=== PATIENT | male | born 1950 | race Hispanic/Latino ===

== ENCOUNTER 2021-04-20 07:07 | Day surgery (SDC) | payer MEDICARE ==
[2021-04-18 14:08] LABS: BASOPHILS % (AUTO) 1.3 % (0.0-5.0); EOSINOPHILS % (AUTO) 4.5 % (0.0-8.0); HEMATOCRIT 43.2 % (42-54); LYMPHOCYTES % (AUTO) 40.1 % (21.0-51.0); MEAN CORPUSCULAR HEMOGLOBIN 31.8 pg (27.0-33.0); MEAN CORPUSCULAR HGB CONC 32.9 g/dL (32.0-36.0); MEAN CORPUSCULAR VOLUME 96.9 fL (79-99); MONOCYTES % (AUTO) 13.8 % (3.0-13.0); NEUTROPHILS % (AUTO) 40.1 % (40.0-77.0); PLATELET COUNT (AUTO) 258 K/uL (130-400); RED BLOOD CELL COUNT(AUTO) 4.46 MIL/uL (4.50-6.20); RED CELL DISTRIBUTION WIDTH 12.2 % (11.0-15.5); WHITE BLOOD COUNT (AUTO) 5.4 K/uL (4.8-10.8)
[2021-04-18 14:18] LABS: CREATININE 0.9 mg/dL (0.5-1.5); POTASSIUM 4.8 mmol/L (3.5-5.1)
[2021-04-18 14:19] LABS: APPEARANCE,URINE Clear (CLEAR); BILIRUBIN,URINE Negative (NEGATIVE); COLOR,URINE Yellow (YELLOW); GLUCOSE, URINE (UA) Negative (NEGATIVE); KETONES,URINE Trace mg/dL (NEGATIVE); LEUKOCYTE ESTERASE ,URINE Negative (NEGATIVE); NITRATE,URINE Negative (NEGATIVE); OCCULT BLOOD,URINE Negative (NEGATIVE); PROTEIN,URINE Negative (NEGATIVE)
[2021-04-18 14:21] LABS: INR 0.99 (0.85-1.15); PROTHROMBIN TIME 10.8 SEC (9.6-11.6)
[2021-04-18 14:23] LABS: PARTIAL THROMBOPLASTIN TIME 26.3 SEC (26.3-35.5)
[2021-04-20] VITALS (11 sets, daily range): BP systolic 113–140; BP diastolic 64–85
[~2021-04-20] VITALS: Ht 175.3 cm; Wt 85.9 kg
[~2021-04-20 07:07] MED LIST: 0.9% NACL 500ML IV.SOLN 500 ML IV SCH; ASPI-1443 PO; CELE200 PO; LOSA50TA64 PO; NITR0.4T50 SL; PANT40TA54 PO; PRAV40TA3 PO; RANO10005 PO; SILD100T PO; VITAMIN D3 PO
[2021-04-20] MEDS ORDERED: 0.9%NACL 1000ML 1,000 ML IV ONE (07:11)
[2021-04-20] MEDS ORDERED: NITROGLYCERIN 2 MG VIAL IV ONE (08:39)
[2021-04-20] MEDS ORDERED: BIVALIRUDIN 250 MG/VIAL IV ONE (08:39)
[2021-04-20] MEDS ORDERED: IOHEXOL-350 50ML VIAL IV ONE (08:39)
[2021-04-20] MEDS ORDERED: IOHEXOL 350 MG/ML 100ML INFUS..BTL IV ONE (08:40)
[2021-04-20] MEDS ORDERED: LIDOCAINE HCL 400MG/20ML VIAL ONE (08:40)
[2021-04-20] MEDS ORDERED: MIDAZOLAM HCL 1 MG/ML 2ML VIAL ONE (08:40)
[2021-04-20] MEDS ORDERED: FENTANYL CITRATE PF 50 MCG/1 ML 2ML VIAL ONE (09:51)
[2021-04-20] MEDS ORDERED: 0.9%NACL 1000ML 1,000 ML IV SCH (10:30)
== END 2021-04-20 15:40 | disposition home or self-care (01) ==
LOC: DAH 07:07
PROVIDERS: ATTEND Internal Medicine Cardiovascular Disease
DX: I25.118 Atherosclerotic heart disease of native coronary artery with other forms of angina pectoris (principal); I44.7 Left bundle-branch block, unspecified; I42.8 Other cardiomyopathies; I10 Essential (primary) hypertension; E78.5 Hyperlipidemia, unspecified; J44.9 Chronic obstructive pulmonary disease, unspecified; M19.90 Unspecified osteoarthritis, unspecified site; Z72.89 Other problems related to lifestyle; Z86.16 Personal history of COVID-19; Z79.01 Long term (current) use of anticoagulants; Z79.899 Other long term (current) drug therapy; Z87.891 Personal history of nicotine dependence; Z79.82 Long term (current) use of aspirin; Z82.49 Family history of ischemic heart disease and other diseases of the circulatory system
CPT/HCPCS: 36415; 71045; 80048; 81003; 85025; 85610; 85730; 93005; 93458; A4215; A4216; A4221; A4222; A4223 ×3; A4606; A4663; C1760 ×2; C1894 ×2; J1644; J2250; J3010; J3490 ×2; J7030 ×2; Q9965; Q9967 ×2; 96360; 96361; 99156; 99157; J0583

== ENCOUNTER 2021-07-25 07:58 | Day surgery (SDC) | payer MEDICARE ==
[~2021-07-25] VITALS: Ht 175.3 cm; Wt 88.0 kg
[~2021-07-25 07:58] MED LIST changes: -0.9% NACL 500ML IV.SOLN 500 ML IV SCH; +0.9%NACL 1000ML 1,000 ML IV ONE; +ACET-2521 PO; -CELE200 PO; +DILT180C47 PO; -SILD100T PO; +SILD20TA14 PO
[2021-07-25 09:15] VITALS: BP 160/84
[2021-07-25] MEDS ORDERED: SILD20TA14 PO (09:35)
[2021-07-25] MEDS ORDERED: LOSA50TA64 PO (09:35)
[2021-07-25] MEDS ORDERED: ACET-2113 PO (09:37)
[2021-07-25] MEDS ORDERED: DILT180C47 PO (09:37)
[2021-07-25] MEDS ORDERED: PROPOFOL 10 MG/ML 20ML VIAL IV ONE (10:22)
[2021-07-25 10:40] VITALS: BP 137/73
[2021-07-25 10:45] VITALS: BP 136/58
[2021-07-25 11:15] VITALS: BP 160/84
== END 2021-07-25 11:26 | disposition home or self-care (01) ==
LOC: ENDO 07:58 → DAH 07:58 → ENDO 11:26
PROVIDERS: ATTEND Internal Medicine Gastroenterology
DX: K21.9 Gastro-esophageal reflux disease without esophagitis (principal); Z20.822 Contact with and (suspected) exposure to COVID-19; K29.70 Gastritis, unspecified, without bleeding; K31.89 Other diseases of stomach and duodenum; J44.9 Chronic obstructive pulmonary disease, unspecified; E78.5 Hyperlipidemia, unspecified; M19.90 Unspecified osteoarthritis, unspecified site; K76.0 Fatty (change of) liver, not elsewhere classified; I25.10 Atherosclerotic heart disease of native coronary artery without angina pectoris; Z79.82 Long term (current) use of aspirin; Z79.899 Other long term (current) drug therapy; Z98.890 Other specified postprocedural states; Z86.73 Personal history of transient ischemic attack (TIA), and cerebral infarction without residual deficits; Z80.0 Family history of malignant neoplasm of digestive organs; Z86.19 Personal history of other infectious and parasitic diseases; Z86.010 Personal history of colon polyps
CPT/HCPCS: 43239; 87635; 88305; 88342; A4215 ×2; A4221; A4222; A4223; A4606; A4620; A4657; A4663; C9803; J2704; J7030

== ENCOUNTER → 2023-01-18 | Outpatient (CLI) | payer MEDICARE ==
[~2023-01-18] MED LIST changes: -0.9%NACL 1000ML 1,000 ML IV ONE; +ACET-2113 PO; -ACET-2521 PO
[2023-01-18 13:04] LABS: ALBUMIN 4.1 g/dL (3.5-5.0); CREATININE 0.9 mg/dL (0.5-1.5); POTASSIUM 3.6 mmol/L (3.5-5.1); TOTAL PROTEIN, SERUM 7.8 g/dL (6.0-8.3)
== END | disposition home or self-care (01) ==
LOC: LAB 08:56
PROVIDERS: ATTEND Internal Medicine Cardiovascular Disease
DX: I25.119 Atherosclerotic heart disease of native coronary artery with unspecified angina pectoris (principal); E78.5 Hyperlipidemia, unspecified; I10 Essential (primary) hypertension
CPT/HCPCS: 36415; 80053; 80061

== ENCOUNTER → 2024-01-14 | Outpatient (CLI) | payer OTHER, MEDICARE | END | disposition home or self-care (01) | LOC: RAH 13:10 | PROVIDERS: ATTEND Internal Medicine | DX: R13.10 Dysphagia, unspecified (principal); R63.30 Feeding difficulties, unspecified | CPT/HCPCS: 74230; 92611 ==

== ENCOUNTER 2025-01-10 12:44 | Emergency (ER) | payer OTHER, MEDICARE ==
[~2025-01-10] VITALS: Ht 175.3 cm; Wt 77.1 kg
[~2025-01-10 12:44] MED LIST changes: -ACET-2113 PO; +ACET-3305 PO
[2025-01-10 12:56] VITALS: BP 138/76; PULSE 67; RESP 18; TEMP 98; O2SAT 98
[2025-01-10] MEDS ORDERED: HYDR28OI10 TP (13:20)
[2025-01-10] MEDS ORDERED: DIPH-1242 PO (13:20)
--- NOTE | 2025-01-10 13:22 | ERN ---
General Chief Complaint: Skin Problem Stated Complaint: SKIN PROBLEM Time Seen by MD: 12:48 Time Seen by Midlevel: 12:48 Source: patient History of Present Illness Initial Comments Patient is a 74-year-old male presenting to the emergency department for evaluation of itching to his right lower extremity. He noticed small red spots to report to the ER for further evaluation he does report walking through tall brush yesterday and believes he may have come in contact with something. Denies any other symptoms. Allergies: Coded Allergies: No Known Drug Allergies (Verified Allergy, Unknown, 04/19/21) Home Meds Active Scripts Diphenhydramine HCl (Benadryl) 25 Mg Cap, 25 MG PO BID for 7 Days, #14 CAP Prov:CAROLE TYLER 01/10/25 Hydrocortisone Acetate (Hydrocortisone) 1 % Oint...g., 1 APPL TP BID for 7 Days, #28 GM 0 Refills Prov:CAROLE TYLER 01/10/25 Reported Medications Diltiazem HCl (Dilt-Xr) 180 Mg Cap.er.deg, 180 MG PO DAILY 07/25/21 Acetaminophen (Arthritis Pain) 650 Mg Tablet.er, 650 MG PO AD, TAB 07/25/21 Losartan Potassium (Losartan Potassium) 50 Mg Tablet, 50 MG PO DAILY, TAB 07/25/21 Sildenafil Citrate (Sildenafil) 20 Mg Tablet, 20 MG PO DAILY, TAB 07/25/21 Nitroglycerin (Nitroglycerin) 0.4 Mg Tab.subl, 0.4 MG SL AD PRN for CHEST PAIN, TAB.SL 04/19/21 Aspirin (Aspirin EC) 81 Mg Tablet.dr, 81 MG PO DAILY, TAB 04/19/21 Pravastatin Sodium (Pravastatin Sodium) 40 Mg Tablet, 40 MG PO DAILY, TAB 04/19/21 Ranolazine (Ranolazine ER) 1,000 Mg Tab.er.12h, 1000 MG PO BID, TAB 04/19/21 Pantoprazole Sodium (Pantoprazole Sodium) 40 Mg Tablet.dr, 40 MG PO DAILY, TAB 04/19/21 [Vitamin D3] No Conflict Check, 2000 UNITS PO DAILY 04/19/21 Past Medical History Past Medical History: Arthritis, High Cholesterol, Hypertension Past Surgical History: None ROS Dictation CONSTITUTIONAL: Negative except for HPI HEAD/FACE: Negative except for HPI EENT: Negative except for HPI RESPIRATORY: Negative except for HPI GASTROINTESTINAL/ABDOMINAL: Negative except for HPI GENITOURINARY: Negative except for HPI MUSCULOSKELETAL: Negative except for HPI INTEGUMENTARY: Negative except for HPI NEUROLOGICAL/PSYCH: Negative except for HPI HEMATOLOGIC/LYMPHATIC: Negative except for HPI All Systems Negative, Except as noted above. 13 point review of systems assessed and all negative except for above. Physical Exam Physical Exam Dictation PHYSICAL EXAM: GENERAL: alert,, awake oriented x 3 HEENT: EOMI, Sclera non icteric, moist mucosa NECK: Supple, no JVD, trachea midline LUNGS: Clear breath sounds bilaterally. No wheezes HEART: Regular rate and rhythm. Normal S1 and S2, without murmurs ABD: Abdomen soft, nontender. Bowel sounds present EXT: No clubbing or cyanosis, NEURO: Alert and oriented to person, follows commands SKIN: Multiple small circular red spots with no surrounding erythema or induration, MDM MDM: Differential diagnosis: Cellulitis, allergic reaction, vasculitis, contact dermatitis There are no social concerns with this patient. Prescription drug management Prescriptions will include: Hydrocortisone cream, Benadryl Medical management and examination interpretation discussions were had by me with other qualified healthcare professionals as indicated for the patient's care. ED Course Vital Signs Date Time Temp Pulse Resp B/P (MAP) Pulse Ox O2 Delivery O2 Flow Rate FiO2 01/10/25 12:56 98.1 67 18 138/76 98 Room Air* 0 21 01/10/25 12:46 98.1 67 16 98 Room Air 0 DX & DISP Disposition: Discharge Departure Impression: Primary Impression: Skin problem Additional Impression: Rash Condition: Stable Scripts Diphenhydramine HCl (Benadryl) 25 Mg Cap 25 MG PO BID for 7 Days, #14 CAP Prov: CAROLE TYLER 01/10/25 Hydrocortisone Acetate (Hydrocortisone) 1 % Oint...g. 1 APPL TP BID for 7 Days, #28 GM 0 Refills Prov: CAROLE TYLER 01/10/25 Referrals: JAGDEEP BEST MD (PCP) JACLYN PURVIS MD I have reviewed the case, and I agree with, Diagnosis and Plan I performed the substantive portion of the visit. I have reviewed and personally made and approve the management plan that is documented in the note by myself or the PETER. I acknowledge for responsibility for the patient's management plan. CAROLE TYLER Jan 10, 2025 13:22
== END 2025-01-10 13:26 | disposition home or self-care (01) ==
LOC: EDH 12:44
DX: R21 Rash and other nonspecific skin eruption (principal); E78.00 Pure hypercholesterolemia, unspecified; I10 Essential (primary) hypertension; Z79.82 Long term (current) use of aspirin; Z79.899 Other long term (current) drug therapy
CPT/HCPCS: 99282